=== PATIENT | female | born 1960 | race Caucasian/White ===

== ENCOUNTER 2017-05-29 17:11 | Emergency (ER) | payer BC | END 2017-05-29 18:41 | disposition home or self-care (01) | LOC: E/R 18:41 | DX: J20.9 Acute bronchitis, unspecified (principal) | CPT/HCPCS: 99284 ==

== ENCOUNTER 2017-07-24 09:17 | Day surgery (SDC) | payer BC ==
[2017-07-24] MEDS: MOXIFLOXACIN 0.5% 3 ML OPH OPER (10:37)
[2017-07-24] MEDS: NEPAFENAC 0.1% 3 ML OPH OPER (10:37)
[2017-07-24] MEDS: CYCLOPENTOLATE 2% 2 ML OPH OPER (10:38)
[2017-07-24] MEDS: PHENYLephrine 10% 5 ML OPH OPER (10:38)
[2017-07-24] MEDS ORDERED: PROPOFOL 20 ML (12:24)
[2017-07-24] MEDS ORDERED: LIDOCAINE 2% (SDV) 5 ML INJ (12:24)
[2017-07-24] MEDS ORDERED: ONDANSETRON 4 MG INJ ×2 (12:24→13:39)
[2017-07-24] MEDS ORDERED: FENTAnyl 50 MCG/ML VIAL (13:23)
[2017-07-24] MEDS: TIMOLOL 0.5% 5 ML OPH LEFT EYE (13:50)
[2017-07-24] MEDS: ONDANSETRON 4 MG INJ IV (14:29)
[2017-07-24] MEDS ORDERED: TIMOLOL 0.5% 5 ML OPH (14:30)
[2017-07-24] MEDS: FENTAnyl 50 MCG/ML VIAL IV (14:31)
[2017-07-24] MEDS: HYDROCODONE/APAP (5/325) TAB PO (16:03)
== END 2017-07-24 17:20 | disposition home or self-care (01) ==
LOC: SDS 09:17
DX: H25.12 Age-related nuclear cataract, left eye (principal); I10 Essential (primary) hypertension; E66.9 Obesity, unspecified; Z68.37 Body mass index [BMI] 37.0-37.9, adult
CPT/HCPCS: 66984; 84703

== ENCOUNTER 2018-03-08 02:14 | Emergency (ER) | payer BC ==
[2018-03-08] MEDS: IBUPROFEN 600 MG TAB PO (03:15)
[2018-03-08] MEDS: ACETAMINOPHEN 325 MG TAB PO (03:16)
== END 2018-03-08 04:16 | disposition home or self-care (01) ==
LOC: FTE 04:16
DX: J20.9 Acute bronchitis, unspecified (principal); I10 Essential (primary) hypertension
CPT/HCPCS: 71045; 87400; 99284-25